=== PATIENT | female | born 1935 | race Caucasian/White ===

== ENCOUNTER 2016-08-29 20:31 | Emergency (ER) | payer OTHER ==
[~2016-08-29 20:31] MED LIST: ACCUNEB INH; ALLEGRA180 PO; ASAB PO; ATROVENT HFA17 MCG INH; BUSPAR10 PO; BUSPAR5 PO; BYSTOLIC10 MG PO; BYSTOLIC5 MG PO; C25 PO; CELEXA10 PO; CELEXA40 MG PO; HALF81 PO; HYDROCODONE APAP; IPRA17AE INH; LEVOTHYROXIN75 MCG PO; LEXAPRO10 PO; LORTAB10 PO; NORV10 PO; PCET PO; PREV30 PO; SYN075 PO; SYN88 PO; ZOCOR20 PO; ZOCOR40 PO
== END 2016-08-30 00:15 | disposition home or self-care (01) ==
LOC: ER 20:31
DX: M25.552 Pain in left hip (principal); I10 Essential (primary) hypertension; F17.200 Nicotine dependence, unspecified, uncomplicated; Z88.5 Allergy status to narcotic agent; Z79.82 Long term (current) use of aspirin; Z79.891 Long term (current) use of opiate analgesic; Z79.899 Other long term (current) drug therapy
CPT/HCPCS: 73501-LT; 73502-LT; 99284; A9270-GY